=== PATIENT | male | born 1945 | race Caucasian/White ===

== ENCOUNTER 2017-01-04 09:29 | Outpatient (CLI) | payer MEDICARE ==
--- NOTE | 2017-01-04 12:15 | Fluoroscopy Report ---
Modified barium swallow: History: Dysphagia. Findings: There was no anatomic obstruction noted to the flow of liquids, semisolid and solid food through the cervical esophagus. One time aspiration of liquids was identified. Additional information will be provided by speech therapist. Findings: Findings as above.
== END 2017-01-04 09:30 | disposition home or self-care (01) ==
LOC: PT 09:29
PROVIDERS: ATTEND Internal Medicine Gastroenterology
DX: R13.12 Dysphagia, oropharyngeal phase (principal); Z86.73 Personal history of transient ischemic attack (TIA), and cerebral infarction without residual deficits
CPT/HCPCS: 74230; 92611; G8996; G8997; G8998